=== PATIENT | male | born 1945 | race Caucasian/White ===

== ENCOUNTER 2017-07-07 06:19 | Day surgery (SDC) | payer MEDICARE ==
[2017-07-01 14:45] VITALS: BMI 23.1
[~2017-07-07 06:19] MED LIST: ALPRAZolam 0.25 MG TAB PO PRN; ALPRAZolam 0.5 MG TAB PO PRN; ASPIRIN 325 MG TAB PO STA; ATORVASTATIN 80 MG TAB PO STA; LACTATED RINGERS 1,000 ML IV SCH; MIDAZOLAM 2 MG/2 ML VIAL IV PRN; MORPHINE SULFATE 4 MG/ML SYRINGE IV PRN; NITROGLYCERIN SL TABS 0.4 MG TAB SUBLINGUAL PRN; ONDANSETRON 4 MG/2 ML VIAL IVP PRN; SODIUM CHLORIDE 0.9% 1,000 ML in EMPTY BAG 1 BAG IV ONE; SODIUM CHLORIDE 0.9% 500 ML IV ONE
[2017-07-07 07:04] VITALS: TEMP 98
[2017-07-07] MEDS ORDERED: VERAPAMIL 2.5 MG/ML 2 ML AMP ONE (07:07)
[2017-07-07] MEDS ORDERED: LIDOCAINE 2% INJ 20 MG/ML (20 ML MDV) ONE (07:07)
[2017-07-07] MEDS ORDERED: fentaNYL (PF) 50 MCG/ML 2 ML AMP ONE (07:07)
[2017-07-07] MEDS ORDERED: HEPARIN SODIUM 1,000 UN/ML (10ML VL) ONE (07:33)
[2017-07-07] MEDS ORDERED: fentaNYL (PF) 50 MCG/ML 2 ML AMP IV ONE (07:35)
[2017-07-07] MEDS ORDERED: LIDOCAINE 2% INJ 20 MG/ML SQ ONE (07:36)
[2017-07-07] MEDS: VERAPAMIL SYRINGE (5 MG/10 ML) INTRAARTER ONE ×2 (07:40→08:26)
[2017-07-07] MEDS ORDERED: HEPARIN SODIUM 1,000 UN/ML (10ML VL) IV ONE (07:55)
[2017-07-07] MEDS ORDERED: NITROGLYCERIN 1000MCG/10ML SYRINGE INTRACORON ONE (07:58)
[2017-07-07] MEDS ORDERED: IOHEXOL 350 MG/ML 125ML BOTTLE INJ ONE (08:31)
[2017-07-07] MEDS ORDERED: RX INFO: IV CONTRAST WAS GIVEN 1 EACH MISC MISCELLANE PRN (08:56)
[2017-07-07] MEDS ORDERED: NITROGLYCERIN SL TABS 0.4 MG TAB SUBLINGUAL PRN (08:57)
[2017-07-07] MEDS ORDERED: NON-FORMULARY DRUG (Ubidecarenone [Co Q-10] 100 MG) PO SCH (09:00)
[2017-07-07] MEDS ORDERED: SODIUM CHLORIDE 0.9% 1,000 ML IV SCH (09:00)
--- NOTE | 2017-07-07 09:32 | CC ---
CARDIAC CATHETERIZATION REPORT Mr. Russo is a 72-year-old male with a known history of coronary artery disease, history of hypertension, hyperlipidemia, history of dissection of the thoracic aorta, status post stenting, who presented with symptoms of progressive chest discomfort and dyspnea on exertion. In view of that, recommendation made regarding cardiac catheterization. The procedures, risks and complication were discussed with the patient who is in full understanding and agreement. PROCEDURE: Patient was brought to the [facility] in a fasting semi-sedated state after receiving fentanyl and Benadryl and achieving moderate conscious sedated state. Using Xylocaine anesthesia and Seldinger technique, a 6-[place] sheath was introduced in the right radial artery, selective right and left angiography were performed using 5- [place] 3.5 bend right and left Jhony catheter, multiple views of the coronary artery including hemiaxial views obtained. Following that, a 6-[place] 3-1/2 FL guiding catheter introduced into the system and a Doppler flow wire was advanced across the lesion. I was not able to measure FFR because of machine technical problems. Following that, catheter removed and a 5-[place] tight pigtail catheter was introduced into the left ventricle and a 30 degree VALDERRAMA view of the left ventricle was obtained. Following that, an ascending aortogram in the TAMAZIGHT view was performed. Following that, catheter and sheaths were removed. Hemostasis was obtained with deployment of a TR band. There was no immediate complication. Patient is returned to his room in stable condition. Of note, the patient received 5000 units of intravenous heparin as well as intra-arterial verapamil. FINDINGS: 1. LEFT MAIN: This is a large-sized vessel bifurcating into left circumflex, left anterior descending artery, left main coronary artery is without any significant obstructive disease. 2. LEFT ANTERIOR DESCENDING ARTERY: This was a large-sized vessel, reaching toward the apex with a wraparound apex segment, giving rise to 2 diagonal branches. At the takeoff of the first septal lithographic plate maker, there is an eccentric 70% lesion. At the takeoff of the second diagonal branch, there is a 67% plaque. The rest of the vessel has no high-grade stenosis. 3. LEFT CIRCUMFLEX: This is a nondominant vessel giving rise to 3 obtuse marginal branches. The third obtuse marginal branch is totally occluded with retrograde filling. 4. RIGHT CORONARY ARTERY: This vessel is totally occluded in the mid segment with ipsilateral collaterals and contralateral collaterals feeding the PDA. 5. LEFT VENTRICULOGRAM: Left ventriculogram was performed in 30 degree VALDERRAMA view and revealed an inferobasal hypokinesis with an ejection fraction of 45%. There was no significant mitral regurgitation. 6. AORTOGRAM: Aortogram was performed in the TAMAZIGHT view and revealed a tricuspid aortic valve with no evidence of aortic regurgitation. The stented arch and descending thoracic aorta were noted. 7. HEMODYNAMICS: There is no gradient across the aortic valve. The ventricular end- diastolic pressure was 12 mmHg. 8. CONCLUSION: 1. Chronically occluded mid right coronary artery and third obtuse marginal branch. 2. Progression of disease in the proximal left anterior descending artery with significant obstructive disease with moderate significant disease in the mid left anterior descending artery. 3. Mildly impaired left ventricular systolic function. 4. Normal appearance of the ascending aorta. There was evidence of a stented segment in the arch and descending thoracic aorta. RECOMMENDATION: I have recommend proceed with evaluation for possible coronary artery bypass grafting with bypass to the LAD, diagonal branch as well as the circumflex obtuse marginal branch 3 and the right coronary artery. Those findings and recommendations were discussed with the patient and his family who in full understand and agreement. DURATION OF THE PROCEDURE: 58 minutes. MMODL / IJN: [id number] / HERNANDEZ
--- NOTE | 2017-07-07 09:38 | LTR ---
DATE OF SERVICE: 07/07/2017 RE: Von Russo Dear Dr. Thompson; I had the pleasure to perform cardiac catheterization on Mr. Russo at [facility] on July 07, 2017 and a full copy of the procedure note will be forwarded to you. In brief, he was found to have progression of disease in the proximal left anterior descending artery. In view of that, I would recommend proceeding with evaluation for coronary artery bypass grafting. I will keep you updated on his progress and thank you again for allowing me to participate in this patient's care. Please feel free to call for any questions. Sincerely yours, Lit CARDOSOL / MUSHTAQN: [id number] /
[2017-07-07 09:50] VITALS: RESP 16
[2017-07-07 11:30] VITALS: BP 123/75; PULSE 58
[2017-07-07] MEDS ORDERED: CALCIUM CARB-VIT D 500MG-200UN 1 EACH TAB PO SCH (14:00)
[2017-07-07] MEDS ORDERED: CARVEDILOL 12.5 MG TAB PO SCH (17:30)
[2017-07-07] MEDS ORDERED: ATORVASTATIN 40 MG TAB PO SCH (21:00)
[2017-07-07] MEDS ORDERED: levETIRAcetam 500 MG TAB PO SCH (21:00)
[2017-07-08] MEDS ORDERED: ISOSORBIDE MONONITRATE ER 30 MG TAB.ER.24H PO SCH (09:00)
[2017-07-08] MEDS ORDERED: ASPIRIN 81 MG PO SCH (09:00)
[2017-07-08] MEDS ORDERED: DOXAZOSIN 2 MG TAB PO SCH (09:00)
[2017-07-08] MEDS ORDERED: ESCITALOPRAM 10 MG TAB PO SCH (09:00)
--- NOTE | 2017-07-08 09:01 | P.GSCN ---
<Patricia Bonilla - Last Filed: 07/08/17 08:38> History of Present Illness Consult date: 07/07/17 Reason for Consult: Multivessel coronary artery disease, surgical recommendations. Requesting physician: Lit Villarreal History of present illness: This 72-year-old gentleman with a history of coronary artery disease including previous left heart catheterizations with stent placement, most recently in 2013 , peripheral artery disease including descending aortic dissection repair with stent graft placement, hypertension, hyperlipidemia, pulmonary embolism, and family history of heart disease presented to Dr. Villarreal's office with complaints of exertional chest pain and progressive dyspnea which was improved with rest and sublingual nitroglycerin. He complained of increase in fatigue which was limiting his activities of daily living. He denied orthopnea, paroxysmal nocturnal dyspnea, edema, palpitations, syncope, and claudication. He had carotid Dopplers in April which demonstrated mild disease to his bilateral internal coronary arteries, a transthoracic echocardiogram in May which demonstrated a normal ejection fraction, mild mitral regurgitation, mild aortic insufficiency, and mild tricuspid regurgitation. Based on his symptoms a left heart catheterization was recommended which was completed on July 07 and demonstrated left main coronary artery without significant disease, first diagonal branch off the LAD with a 70% lesion, second diagonal branch with a 67% lesion, third obtuse marginal branch of the left circumflex which is totally chronically occluded, totally chronically occluded right coronary artery with collaterals feeding the PDA, and a left ventriculogram demonstrating an ejection fraction of 45%. Due to the nature of his heart disease Dr. Goldsmith from cardiothoracic surgery was consulted for recommendations regarding surgical revascularization. Review of Systems 14 point review systems was completed and was negative except as noted. - Constitutional Reports fatigue - Cardiovascular Reports as per HPI, Reports chest pain, Reports dyspnea on exertion - Respiratory Reports as per HPI, Reports dyspnea Past Medical History Past Medical History: Coronary Artery Disease (CAD), Eye Disorder, Hyperlipidemia, Hypertension, Myocardial Infarction ([place]), Prostate Disorder, Pulmonary Embolus ([place]), Renal Disease, Seizure Disorder Additional Past Medical History / Comment(s): multiple KS's,macular degeneration titus., osteopenia, lt kidney functioning at 75% Last Myocardial Infarction Date:: unknown History of Any Multi-Drug Resistant Organisms: None Reported Past Surgical History: Heart Catheterization With Stent, Orthopedic Surgery Additional Past Surgical History / Comment(s): aorta disection 2013 with stent graft placement, heart cath with stents x2,ocular implants titus. eyes Past Anesthesia/Blood Transfusion Reactions: No Reported Reaction Date of Last Stent Placement:: 2013 Past Psychological History: No Psychological Hx Reported Smoking Status: Former smoker Past Alcohol Use History: None Reported Past Drug Use History: None Reported - Past Family History Father Family Medical History: Cancer, Deep Vein Thrombosis (DVT) Additional Family Medical History / Comment(s): esophageal Mother Family Medical History: AFIB, Asthma, Congestive Heart Failure (CHF) Medications and Allergies Home Medications Medication Instructions Recorded Confirmed Type Aspirin EC [Ecotrin Low Dose] 81 mg PO DAILY 03/15/16 07/07/17 History Atorvastatin [Lipitor] 40 mg PO HS 03/15/16 07/07/17 History Calcium Carbonate/Vitamin D3 2 tab PO DAILY 03/15/16 07/07/17 History [Calcium 600-Vit D3 400 Caplet] Carvedilol [Coreg] 12.5 mg PO BID 03/15/16 07/07/17 History Doxazosin [Cardura] 2 mg PO DAILY 03/15/16 07/07/17 History Escitalopram [Lexapro] 10 mg PO DAILY 03/15/16 07/07/17 History Isosorbide Mononitrate ER [Imdur] 30 mg PO DAILY 03/15/16 07/07/17 History Nitroglycerin Sl Tabs [Nitrostat] 0.4 mg SUBLINGUAL Q5M PRN 03/15/16 07/01/17 History Ubidecarenone [Co Q-10] 100 mg PO DAILY 03/15/16 07/07/17 History levETIRAcetam [Keppra] 500 mg PO Q12HR 03/15/16 07/07/17 History Allergies Allergy/AdvReac Type Severity Reaction Status Date / Time Fish Containing Products AdvReac Nausea & Verified 07/01/17 14:13 [Fish] Vomiting & Diarrhea garlic AdvReac Nausea & Verified 07/01/17 14:13 Vomiting & Diarrhea tramadol HCl [From Ultram] AdvReac Confusion Verified 07/01/17 14:13 Surgical - Exam Vital Signs Temp Pulse Resp BP Pulse Ox 98.0 F 59 L 18 126/80 95 07/07/17 06:50 07/07/17 06:50 07/07/17 06:50 07/07/17 06:50 07/07/17 06:50 Results - Imaging Additional studies: Cardiac catheterization films reviewed. Assessment and Plan (1) Coronary artery disease Status: Chronic Code(s): I25.10 - ATHSCL HEART DISEASE OF [place] CORONARY ARTERY W/O ANG PCTRS SNOMED Code(s): 77378937 (2) History of coronary artery stent placement Status: Resolved Code(s): Z95.5 - PRESENCE OF CORONARY ANGIOPLASTY IMPLANT AND GRAFT SNOMED Code(s): 884678680 (3) Peripheral artery disease Status: Chronic Code(s): I73.9 - PERIPHERAL VASCULAR DISEASE, UNSPECIFIED SNOMED Code(s): 518477344 (4) Hypertension Status: Chronic Code(s): I10 - ESSENTIAL (PRIMARY) HYPERTENSION SNOMED Code( s): 04012564 (5) Hyperlipidemia Status: Chronic Code(s): E78.5 - HYPERLIPIDEMIA, UNSPECIFIED SNOMED Code(s) : 66015408 (6) History of pulmonary embolism Status: Resolved Code(s): Z86.711 - PERSONAL HISTORY OF PULMONARY EMBOLISM SNOMED Code(s): 099173681 (7) Family history of heart disease Status: Chronic Code(s): Z82.49 - FAMILY HX OF ISCHEM HEART DIS AND OTH DIS OF THE CIRC SYS SNOMED Code(s): 112496938 (8) GERD (gastroesophageal reflux disease) Status: Chronic Code(s): K21.9 - GASTRO-ESOPHAGEAL REFLUX DISEASE WITHOUT ESOPHAGITIS SNOMED Code(s): 645971686 (9) Tobacco dependence in remission Status: Resolved Code(s): F17.201 - NICOTINE DEPENDENCE, UNSPECIFIED, IN REMISSION SNOMED Code(s): 752420630 Plan: The patient was seen and examined at the bedside in the extended stay unit with Dr. Goldsmith. Chart and diagnostics were reviewed. Heart catheterization films were reviewed with Dr. Goldsmith. An extensive discussion was had with the patient and his regarding the patient's disease process and our recommendations for surgical revascularization. Risks and benefits were explained in detail and the patient is consenting to coronary artery bypass graft surgery. He is to have a CT angiogram of his chest on Tuesday, July 11 as well as remaining preoperative testing. He is to follow-up with Dr. Goldsmith at his office on July 14 at 1:45 PM to make plans for a surgical date. At this time we recommend medical maximization with aspirin, statin, beta alf in preparation for surgery. Time with Patient: Greater than 30 <Yon Goldsmith - Last Filed: 07/14/17 12:24> Surgical - Exam Vital Signs Temp Pulse Resp BP Pulse Ox 98.0 F 59 L 18 126/80 95 07/07/17 06:50 07/07/17 06:50 07/07/17 06:50 07/07/17 06:50 07/07/17 06:50 Assessment and Plan Assessment: Patient was seen and examined. Films were reviewed with Dr. Villarreal. Long discussion was held with the patient and his . Plan will be for elective bypass surgery. Patient is to follow up with me in the office. Computed tomography scan of the chest will be obtained to evaluate the patient's thoracic aorta prior to surgery. I agree with the evaluation as documented above by the nurse practitioner.
== END 2017-07-07 13:53 | disposition home or self-care (01) ==
LOC: CATHCVL 06:19
PROVIDERS: ATTEND Internal Medicine Interventional Cardiology
DX: I25.110 Atherosclerotic heart disease of native coronary artery with unstable angina pectoris (principal); I25.82 Chronic total occlusion of coronary artery; I10 Essential (primary) hypertension; E78.2 Mixed hyperlipidemia; E78.00 Pure hypercholesterolemia, unspecified; K21.9 Gastro-esophageal reflux disease without esophagitis; G40.909 Epilepsy, unspecified, not intractable, without status epilepticus; I73.9 Peripheral vascular disease, unspecified; F17.201 Nicotine dependence, unspecified, in remission; Z79.899 Other long term (current) drug therapy; Z79.82 Long term (current) use of aspirin; Z82.49 Family history of ischemic heart disease and other diseases of the circulatory system; Z88.8 Allergy status to other drugs, medicaments and biological substances; Z86.711 Personal history of pulmonary embolism; Z95.5 Presence of coronary angioplasty implant and graft
CPT/HCPCS: 93458; 93567; C1887; C1894; C1769; J2001; J3010; J1644; Q9967

== ENCOUNTER → 2017-07-11 | Outpatient (CLI) | payer MEDICARE ==
[2017-07-11 09:09] LABS: Blood Urea Nitrogen 12 mg/dL (9-20); Non-African American GFR(MDRD) >60 (>60 ml/min/1.73 sqM)
--- NOTE | 2017-07-11 12:56 | XR ---
EXAMINATION TYPE: XR chest 2V DATE OF EXAM: 07/11/2017 COMPARISON: Prior chest x-ray 03/15/2016 HISTORY: Preop TECHNIQUE: Frontal and lateral views of the chest are obtained. FINDINGS: Postop change noted to the right shoulder, aortic stent graft is again noted in the thorac ic aorta. Surgical clips present in the left upper chest. Hyperinflation may be indicative of underly ing COPD. There is no evident pneumonia, pneumothorax, or pleural effusion. Cardiac mediastinal silho uette, pulmonary vascularity and shamar are similar in appearance. Wedge compression deformity noted at the midthoracic vertebral body as on previous exam is resulting kyphosis. Surgical clips present at the gastroesophageal junction. Patient is rotated. IMPRESSION: No acute cardiopulmonary process. Additional findings above.
--- NOTE | 2017-07-11 13:44 | CT ---
EXAMINATION TYPE: CT angio chest DATE OF EXAM: 07/11/2017 COMPARISON: Chest radiograph of 03/15/2016 HISTORY: Stent graft follow-up CT DLP: 1291 mGycm. Automated Exposure Control for Dose Reduction was Utilized. CONTRAST: CTA scan of the thorax is performed without and with IV Contrast, patient injected with 100 mL of Omn ipaque 350, pulmonary embolism protocol. MIP Images are created on CT scanner and reviewed. FINDINGS: LUNGS: The lungs are grossly clear, there is no concerning parenchymal mass or nodule identified. N umerous areas of pleural-parenchymal scarring are noted versus chronic atelectasis. There is mild rig ht hemidiaphragm elevation. There is no pleural effusion or pneumothorax seen. The tracheobronchial tree is patent. MEDIASTINUM: No hyperdense intramural hematoma is seen on the noncontrast images. Endograft is presen t within the aortic arch beginning at the origin of the right brachiocephalic artery and extending to the approximately T6 vertebral level within the descending thoracic aorta. Anterior to the distal as pect of the endograft there is eccentric mural plaquing measuring 2.8 x 5.0 x 3.0 cm. Abutting the in ferior surface of the graft begins and intimal flap visualized with the endograft in the true lumen. This dissection spans approximately 4.5 cm in length involving only the descending thoracic aorta. Pr ior to the diaphragmatic hiatus the dissection flap resolves. This is contained within the descending thoracic aortic aneurysm measuring 5.6 x 4.9 cm. The visualized portions of the upper abdominal aort a are of normal caliber. There is near proximal occlusion of the origin of the left subclavian artery with endograft placed ap proximately 1.5 cm cephalad to its origin with reconstitution of flow seen distally and numerous surg ical clips in the left supraclavicular region. There are no greater than 1 cm hilar or mediastinal lymph nodes. No cardiomegaly or pericardial eff usion is seen. OTHER: Partially visualized exophytic left probable renal cyst with peripheral calcification is prese nt. Severe right renal atrophy is also present. Hypoattenuated hepatic lesions that are too small to accurately characterize are seen. Gastroesophageal hiatal hernia, small, with postsurgical changes at the gastroesophageal junction are noted. The thyroid gland is enlarged and heterogenous with subster nal extension of the left lobe. Chronic fracture deformities of right lateral mid ribs are seen. No a cute fractures are present. Compression deformity of T7 is seen in addition to multilevel degenerativ e changes of the thoracic spine. This is unchanged from the chest radiograph of 03/15/2016. Right reve rse total humeral arthroplasties partially visualized. IMPRESSION: 1. Endoluminal aortic arch and descending thoracic aortic graft with no evidence of endoleak. Short s egment descending thoracic aortic dissection measures 4.7 cm in length and terminates prior to the ao rtic diaphragmatic hiatus therefore localized to the descending thoracic aorta. 2. 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 Potential subclavian steal syndrome is poss ible with reversal flow in the left vertebral artery feeding the left subclavian artery. This could b e assessed with carotid Doppler ultrasound. 3. Probable thyroid goiter. Thyroid ultrasound could be performed if clinically indicated. 4. Small residual gastroesophageal hernia with postsurgical changes at the gastroesophageal junction. 5. Chronic compression deformity of T7 superimposed upon multilevel degenerative changes of the thora cic spine. Findings were attempted to be relayed to the voicemail of Nurse Practitioner Patricia at Dr. Goldsmith's offi ce at 11:18 on 07/11/2017 however the ordering physician was unavailable.
--- NOTE | 2017-07-13 11:39 | P.VSCSTY ---
Greater Saphenous Vein Mapping This is bilateral lower extremity greater saphenous vein mapping. Date of service 07/11/2017 Vein quality and ultrasound appearance patient has a dual system on the right.. Ant post Vein size groin right 6.1 x 6.2 mm groin left 7.8 x 8.3 mm High thigh right 4.8 x 4.4 5.5 x 4.0 high thigh left 6.3 x 5.6 Mid thigh right 4.7 x 4.4 4.1 x 3.7 mid thigh left 5.3 x 4.9 Above-knee right 5.1 x 3.7 3.7 x 3.2 above-knee left 5.1 x 5.2 Below knee right 3.9 x 2.9 3.2 x 3.3 below-knee left 4.6 x 3.9 Mid calf right 3.6 x 2.9 3.4 x 3.2 mid calf left 3.6 x 3.2 Ankle right 4.9 x 4.5 ankle left 4.4 x 3.6 Impression dual system on the right with both branches apparently usable in portions. Anterior branch somewhat larger. Usable left greater saphenous vein..
== END | disposition home or self-care (01) ==
LOC: RADCTMAIN 08:24
PROVIDERS: ATTEND Thoracic Surgery (Cardiothoracic Vascular Surgery)
DX: I71.2 Thoracic aortic aneurysm, without rupture (principal); I72.8 Aneurysm of other specified arteries; Z95.828 Presence of other vascular implants and grafts; Z98.890 Other specified postprocedural states
CPT/HCPCS: 82565; 84520; 71020; 93970; 71275; 36415; Q9967

== ENCOUNTER 2018-10-25 04:49 | Emergency (ER) | payer MEDICARE ==
[2018-10-25 05:01] VITALS: TEMP 97.8
[2018-10-25 05:11] LABS: Glucose,Whole Blood 151 mg/dL (75-99)
--- NOTE | 2018-10-25 05:29 | ED ---
Seizure HPI - General Chief Complaint: Seizure Stated Complaint: Seizures Time Seen by Provider: 10/25/18 05:22 Source: patient, EMS Mode of arrival: EMS Limitations: altered mental status - History of Present Illness Initial Comments: This patient is a 73-year-old man brought by ambulance to be evaluated for suspected seizure. Patient did have previous seizure and 2016 and had been taking anticonvulsants. The patient does not recall having seizure. He states that he must of been in bed. Reportedly the family member noted him having seizure and called EMS. When I interview the patient he does not feel like he had any injury as result area he denies pain. He states that his breathing seems normal. MD Complaint: possible seizure -: minutes(s) Witnessed: yes - by bystander Trauma: No Place: home Possible Precipitating Event: none Associated Symptoms: denies other symptoms Treatments Prior to Arrival: none - Related Data Home Medications Medication Instructions Recorded Confirmed Doxazosin [Cardura] 2 mg PO DAILY 03/15/16 10/25/18 Escitalopram [Lexapro] 10 mg PO DAILY 03/15/16 10/25/18 Metoprolol Tartrate [Lopressor] 50 mg PO BID 04/06/18 10/25/18 Atorvastatin [Lipitor] 40 mg PO HS 10/25/18 10/25/18 Escitalopram [Lexapro] 20 mg PO DAILY 10/25/18 10/25/18 Allergies Allergy/AdvReac Type Severity Reaction Status Date / Time tramadol HCl [From Ultram] Allergy seizure Verified 10/25/18 07:08 Fish Containing Products AdvReac Nausea & Verified 10/25/18 07:08 [Fish] Vomiting & Diarrhea garlic AdvReac Nausea & Verified 10/25/18 07:08 Vomiting Review of Systems ROS Statement: Those systems with pertinent positive or pertinent negative responses have been documented in the HPI. ROS Other: All systems not noted in ROS Statement are negative. Constitutional: Denies: fever Eyes: Denies: vision change Respiratory: Denies: cough, dyspnea Cardiovascular: Denies: chest pain Gastrointestinal: Denies: abdominal pain, vomiting, diarrhea, melena, hematochezia Musculoskeletal: Denies: back pain Skin: Denies: rash Neurological: Denies: headache, weakness, numbness Past Medical History Past Medical History: Coronary Artery Disease (CAD), Eye Disorder, GERD/Reflux, Hearing Disorder / Deafness, Hyperlipidemia, Hypertension, Myocardial Infarction ([place]), Osteoarthritis (OA), Prostate Disorder, Pulmonary Embolus (PE) , Renal Disease, Seizure Disorder Additional Past Medical History / Comment(s): Multiple FL's. Macular Degeneration titus., Osteopenia. Rt kidney functioning at 75%, LT KIDNEY NON- FUNCTIONING. HX SEIZURE X2, LAST 12/2015, WITH INJURIES TO RT SHOULDER, HIP - BOTH REPAIRED., Last Myocardial Infarction Date:: unknown History of Any Multi-Drug Resistant Organisms: None Reported Past Surgical History: Bladder Surgery, Coronary Bypass/CABG, Heart Catheterization With Stent, Joint Replacement, Orthopedic Surgery Additional Past Surgical History / Comment(s): aorta dissection 2013, heart cath with stents x2, ocular implants titus. eyes. 09-13-14 left carotid. stents x2 aorta. ORIF Rt shoulder, Rt hip replaced. Bilateral inguinal hernia repairs, CABG on 08/2018 - X5 vessel., Past Anesthesia/Blood Transfusion Reactions: No Reported Reaction Additional Past Anesthesia/Blood Transfusion Reaction / Comment(s): Hx autologeous blood transfusion without problems Date of Last Stent Placement:: 2013 Past Psychological History: Depression Smoking Status: Former smoker Past Alcohol Use History: None Reported Past Drug Use History: Marijuana - Past Family History Father Family Medical History: Cancer, Deep Vein Thrombosis (DVT) Additional Family Medical History / Comment(s): esophageal Mother Family Medical History: AFIB, Asthma, Congestive Heart Failure (CHF) General Exam Limitations: altered mental status General appearance: alert, in no apparent distress Head exam: Present: atraumatic, normocephalic Eye exam: Present: normal appearance. Absent: scleral icterus, conjunctival injection ENT exam: Present: normal oropharynx Neck exam: Present: normal inspection, full ROM. Absent: tenderness, meningismus Respiratory exam: Present: normal lung sounds bilaterally. Absent: respiratory distress, wheezes, rales, rhonchi, stridor Cardiovascular Exam: Present: regular rate, normal rhythm, normal heart sounds. Absent: systolic murmur, diastolic murmur, rubs, gallop GI/Abdominal exam: Present: soft. Absent: distended, tenderness, guarding, rebound, rigid, mass Extremities exam: Present: normal inspection, normal capillary refill. Absent: pedal edema, calf tenderness Back exam: Present: normal inspection. Absent: vertebral tenderness Neurological exam: Present: alert, oriented X3, CN II-XII intact. Absent: motor sensory deficit Skin exam: Present: warm, dry, intact, normal color. Absent: rash Course Vital Signs 10/25/18 10/25/18 10/25/18 04:54 06:34 06:59 Temperature 97.8 F Pulse Rate 77 109 H 102 H Respiratory 18 24 20 Rate Blood Pressure 147/93 155/115 146/93 O2 Sat by Pulse 95 95 100 Oximetry 10/25/18 10/25/18 08:00 08:42 Temperature Pulse Rate 89 85 Respiratory 18 18 Rate Blood Pressure 120/64 120/67 O2 Sat by Pulse 99 96 Oximetry - Reevaluation(s) Reevaluation #1: 10/25/18 06:57 I was notified by nursing staff that the patient was having a generalized tonic- clonic seizure. I did order Ativan and the seizure did stop. Following the seizure, the patient was found to be in a narrow complex tachycardia consistent with SVT, at approximately 175 bpm. He was given dose of adenosine 12 mg which resulted in conversion to sinus tachycardia with a rate approximately 112. I discussed the patient's case with his who requests that he be transferred to [facility] for further neurologic care. 10/25/18 08:29 Case is discussed with Dr. Freed, at [facility] who will accept transfer the patient for further care. Medical Decision Making - Lab Data Result diagrams: 10/25/18 05:01 10/25/18 05:01 Lab Results 10/25/18 10/25/18 10/25/18 Range/Units 05:01 05:01 05:10 WBC 7.2 (3.8-10.6) k/uL RBC 5.07 (4.30-5.90) m/uL Hgb 16.6 (13.0-17.5) gm/dL Hct 52.0 (39.0-53.0) % MCV 102.6 H (80.0-100.0) fL MCH 32.8 (25.0-35.0) pg MCHC 32.0 (31.0-37.0) g/dL RDW 14.0 (11.5-15.5) % Plt Count 124 L (150-450) k/uL Neutrophils % 77 % Lymphocytes % 10 % Monocytes % 6 % Eosinophils % 4 % Basophils % 1 % Neutrophils # 5.6 (1.3-7.7) k/uL Lymphocytes # 0.7 L (1.0-4.8) k/uL Monocytes # 0.5 (0-1.0) k/uL Eosinophils # 0.3 (0-0.7) k/uL Basophils # 0.1 (0-0.2) k/uL Macrocytosis Slight Sodium 140 (137-145) mmol/L Potassium 4.4 (3.5-5.1) mmol/L Chloride 108 H (98-107) mmol/L Carbon Dioxide 19 L (22-30) mmol/L Anion Gap 13 mmol/L BUN 17 (9-20) mg/dL Creatinine 1.16 (0.66-1.25) mg/dL Est GFR (CKD-EPI)AfAm 72 (>60 ml/min/1.73 sqM) Est GFR (CKD-EPI)NonAf 62 (>60 ml/min/1.73 sqM) Glucose 154 H (74-99) mg/dL POC Glucose (mg/dL) 151 H (75-99) mg/dL POC Glu Humidifier Operator ID Sonali Sousa Calcium 8.8 (8.4-10.2) mg/dL Total Bilirubin 0.8 (0.2-1.3) mg/dL AST 29 (17-59) U/L ALT 22 (21-72) U/L Alkaline Phosphatase 90 (38-126) U/L Total Protein 6.7 (6.3-8.2) g/dL Albumin 3.7 (3.5-5.0) g/dL Critical Care Time Critical Care Time: Yes (45 minutes) Disposition Clinical Impression: Generalized seizure, Supraventricular tachycardia by ECG Disposition: OTHER INSTITUTION NOT DEFINED Condition: Serious Is patient prescribed a controlled substance at d/c from ED?: No Referrals: Kalia Thompson MD [Primary Care Provider] - 1-2 days - Out of Hospital Transfer - Req. Specs Out of Hospital Transfer - Requested Specifics: Other Emergency Center
[2018-10-25 05:38] LABS: Basophils # (A) 0.1 k/uL (0-0.2); Basophils % (A) 1 %; Eosinophils # (A) 0.3 k/uL (0-0.7); Eosinophils % (A) 4 %; HGB 16.6 gm/dL (13.0-17.5); Lymphocytes # (A) 0.7 k/uL (1.0-4.8); Lymphocytes % (A) 10 %; MCH 32.8 pg (25.0-35.0); MCV 102.6 fL (80.0-100.0); Macrocytosis Slight; Mean Platelet Volume 7.7; Monocytes # (A) 0.5 k/uL (0-1.0); Monocytes % (A) 6 %; Neutrophils # (A) 5.6 k/uL (1.3-7.7); Neutrophils % (A) 77 %; Platelet Count 124 k/uL (150-450); RBC 5.07 m/uL (4.30-5.90); WBC 7.2 k/uL (3.8-10.6)
[2018-10-25 05:50] LABS: Albumin 3.7 g/dL (3.5-5.0); Calcium 8.8 mg/dL (8.4-10.2); Total Bilirubin 0.8 mg/dL (0.2-1.3); Total Protein 6.7 g/dL (6.3-8.2)
--- NOTE | 2018-10-25 05:50 | CT ---
EXAM: CT Head Without Intravenous Contrast CLINICAL HISTORY: ITS.REASON CT Reason: seizure activity TECHNIQUE: Axial computed tomography images of the head/brain without intravenous contrast. CTDI is 49.1 mGy and DLP is 1209.4 mGy-cm. This CT exam was performed using one or more of the following dose reduction techniques: automated exposure control, adjustment of the mA and/or kV according to patient size, and/or use of iterative reconstruction technique. COMPARISON: No relevant prior studies available. FINDINGS: Brain: No evidence of acute intracranial hemorrhage. Moderate patchy foci of low attenuation throughout the supratentorial white matter. No mass effect or herniation. Ventricles: Unremarkable. No ventriculomegaly. Bones/joints: No acute fracture. Soft tissues: Unremarkable. Vasculature: Calcification of the distal internal carotid arteries and vertebrobasilar system. Sinuses: Unremarkable as visualized. Mastoid air cells: Unremarkable as visualized. Other findings: Mild mucosal thickening in the left maxillary antrum. Mild global volume loss. IMPRESSION: 1. No evidence of acute intracranial hemorrhage. 2. Moderate patchy foci of low attenuation throughout the supratentorial white matter. This is most compatible with moderate small vessel ischemic disease.
[2018-10-25 06:08] LABS: Potassium 4.4 mmol/L (3.5-5.1)
[2018-10-25] MEDS ORDERED: LORazepam 2 MG/ML INJ IV STA (06:55)
[2018-10-25] MEDS ORDERED: ADENOSINE 3 MG/ML 2 ML VIAL IVP STA (06:55)
[2018-10-25 08:11] VITALS: RESP 18
[2018-10-25 08:43] VITALS: BP 120/67; PULSE 85
== END 2018-10-25 08:35 | disposition short-term general hospital (02) ==
LOC: EC 04:49
DX: G40.409 Other generalized epilepsy and epileptic syndromes, not intractable, without status epilepticus (principal); I47.1 Supraventricular tachycardia; R41.82 Altered mental status, unspecified; E78.5 Hyperlipidemia, unspecified; I10 Essential (primary) hypertension; I25.10 Atherosclerotic heart disease of native coronary artery without angina pectoris; M19.90 Unspecified osteoarthritis, unspecified site; I25.2 Old myocardial infarction; N42.9 Disorder of prostate, unspecified; F32.9 Major depressive disorder, single episode, unspecified; Z87.891 Personal history of nicotine dependence; Z88.5 Allergy status to narcotic agent; Z91.013 Allergy to seafood; Z91.018 Allergy to other foods; Z79.899 Other long term (current) drug therapy; Z95.1 Presence of aortocoronary bypass graft; Z95.5 Presence of coronary angioplasty implant and graft; Z96.641 Presence of right artificial hip joint; Z96.611 Presence of right artificial shoulder joint; Z96.89 Presence of other specified functional implants; Z87.448 Personal history of other diseases of urinary system; Z82.49 Family history of ischemic heart disease and other diseases of the circulatory system
CPT/HCPCS: 36415; 70450; 80053; 85025; 93005; 96374; 96375; 99291

== ENCOUNTER → 2019-03-16 | Outpatient (CLI) | payer MEDICARE ==
--- NOTE | 2019-03-17 21:05 | CT ---
EXAMINATION TYPE: CT abdomen pelvis wo/w con DATE OF EXAM: 03/16/2019 COMPARISON: CTA 07/11/2017 INDICATION: Retention of urine DLP: 1813 mGycm, Automated exposure control for dose reduction was used. CONTRAST: 100ml mL of Isovue 300. Study performed with Oral Contrast TECHNIQUE: Axial images were obtained from above the diaphragm to the pubic rami in the axial plane a t 5 mm thick sections. Reconstructed images are reviewed on the computer in the coronal plane. FINDINGS: Limited CT sections are obtained the lung bases. The lung bases are clear. There is some aneurysmal dilatation of the descending thoracic aorta with a transverse dimension of 5.1 cm. On delayed images there is a aortic dissection which terminates above the diaphragm to the distal thoracic aorta withi n the [id number]. There is a area of increased density within the posterior lateral right lower lo be measuring 1.5 x 1.1 cm. Some scarring may be at the lingular base thickness of 1.0. Centimeters. CT ABDOMEN: Liver: A 1.3 cm cyst measuring 13 Hounsfield units is in the anterior left lobe liver. Spleen: Normal Pancreas: Normal Adrenal glands: The adrenal glands are normal. Gallbladder: Normal Kidneys: Right kidney is atrophic. There is a lobular hypodensity on the inferior lateral left kidney with peripheral calcification. This is not a simple cyst. Additional workup of this finding is recom mended. Neoplasm cannot be excluded.. No hydronephrosis is present. No cysts are present. Aorta: Vascular calcification is within the aorta. There is fusiform prominence of the distal abdomi nal aorta with an AP diameter of 2.8 cm. Inferior vena cava: Normal. CT PELVIS: Lower pelvis is limited due to bilateral hip prostheses. Loops of bowel within the abdomen and pelvis are normal. There are loops of bowel which are incom pletely distended or lack oral contrast limiting their evaluation. Appendix: Not visualized Urinary bladder: Essentially nondiagnostic due to beam hardening artifact. This appears to have a cat heter present during the exam. Genitourinary structures: Prostate is not identified. Osseous structures: No suspicious lytic or sclerotic lesions. IMPRESSIONS: 1. Complex appearing cyst with peripheral wall calcification. Additional workup is recommended. 2. Descending thoracic aortic aneurysm with dissection terminating above the diaphragm Present 2016.
== END | disposition home or self-care (01) ==
LOC: RADCTMAIN 15:44
PROVIDERS: ATTEND Urology
DX: J98.4 Other disorders of lung (principal); M61.9 Calcification and ossification of muscle, unspecified; R33.8 Other retention of urine; I71.2 Thoracic aortic aneurysm, without rupture
CPT/HCPCS: 82565; 84520; 74178; 36415; Q9967

== ENCOUNTER 2019-04-24 10:54 | Emergency (ER) | payer MEDICARE ==
[2019-04-24 11:01] VITALS: BP 159/90; PULSE 55; RESP 18; TEMP 97.9
--- NOTE | 2019-04-24 12:29 | ED ---
General Adult HPI - General Chief complaint: Urogenital Stated complaint: Male , catheter issue Time Seen by Provider: 04/24/19 11:01 Source: patient, RN notes reviewed Mode of arrival: wheelchair Limitations: no limitations - History of Present Illness Initial comments: 73-year-old male with a past medical history of kidney disease, suprapubic catheter inserted 2 weeks ago presents to the emergency department for a chief complaint of catheter malfunction. Patient had a suprapubic catheter placed 2 weeks ago. States he had a urethral Mayberry for quite some time secondary to a neurogenic bladder but tried to transition to a suprapubic Mayberry. States that today he was in the shower and it fell out. Denies any abdominal pain. States this was done by Dr. Allison in [place]. S[place] he did try to call them but was unable to get through.Patient has no other complaints at this time including shortness of breath, chest pain, abdominal pain, nausea or vomiting, headache, or visual changes. - Related Data Home Medications Medication Instructions Recorded Confirmed Escitalopram [Lexapro] 10 mg PO DAILY 03/15/16 04/24/19 Atorvastatin [Lipitor] 40 mg PO HS 10/25/18 04/24/19 L.acidoph,Paracasei, B.lactis 1 cap PO DAILY 04/24/19 04/24/19 [Probiotic] Metoprolol Tartrate [Lopressor] 25 mg PO W/SUPPER 04/24/19 04/24/19 Metoprolol Tartrate [Lopressor] 50 mg PO W/BRKFST 04/24/19 04/24/19 Nitroglycerin Sl Tabs [Nitrostat] 0.4 mg SUBLINGUAL Q5M PRN 04/24/19 04/24/19 Ubidecarenone [Co Q-10] 300 mg PO DAILY 04/24/19 04/24/19 levETIRAcetam 500 mg PO BID 04/24/19 04/24/19 Allergies Allergy/AdvReac Type Severity Reaction Status Date / Time Fish Containing Products AdvReac Nausea & Verified 04/24/19 11:33 [Fish] Vomiting & Diarrhea garlic AdvReac Nausea & Verified 04/24/19 11:33 Vomiting tramadol HCl [From Ultram] AdvReac seizure Verified 04/24/19 11:33 Review of Systems ROS Statement: Those systems with pertinent positive or pertinent negative responses have been documented in the HPI. ROS Other: All systems not noted in ROS Statement are negative. Past Medical History Past Medical History: Coronary Artery Disease (CAD), Eye Disorder, GERD/Reflux, Hearing Disorder / Deafness, Hyperlipidemia, Hypertension, Myocardial Infarction ([place]), Osteoarthritis (OA), Prostate Disorder, Pulmonary Embolus (PE), Renal Disease, Seizure Disorder Additional Past Medical History / Comment(s): Macular Degeneration titus., Osteopenia. Rt kidney functioning at 75%, LT KIDNEY NON-FUNCTIONING. Last Myocardial Infarction Date:: unknown History of Any Multi-Drug Resistant Organisms: None Reported Past Surgical History: Bladder Surgery, Coronary Bypass/CABG, Heart Catheterization With Stent, Joint Replacement, Orthopedic Surgery Additional Past Surgical History / Comment(s): aorta dissection 2013, ocular implants titus. eyes. 09-13-14 left carotid. stents x2 aorta. ORIF Rt shoulder, Rt hip replaced. Bilateral inguinal hernia repairs, CABG on 08/2018 - X5 vessel, supercath insertion Past Anesthesia/Blood Transfusion Reactions: No Reported Reaction Additional Past Anesthesia/Blood Transfusion Reaction / Comment(s): Hx autologeous blood transfusion without problems Date of Last Stent Placement:: 2013 Past Psychological History: Depression Smoking Status: Former smoker Past Alcohol Use History: None Reported Past Drug Use History: Marijuana - Past Family History Father Family Medical History: Cancer, Deep Vein Thrombosis (DVT) Additional Family Medical History / Comment(s): esophageal Mother Family Medical History: AFIB, Asthma, Congestive Heart Failure (CHF) General Exam Limitations: no limitations General appearance: alert, in no apparent distress Head exam: Present: atraumatic, normocephalic, normal inspection Eye exam: Present: normal appearance, PERRL, EOMI. Absent: scleral icterus, conjunctival injection, periorbital swelling ENT exam: Present: normal exam, mucous membranes moist Neck exam: Present: normal inspection, full ROM. Absent: tenderness, meningismus, lymphadenopathy Respiratory exam: Present: normal lung sounds bilaterally. Absent: respiratory distress, wheezes, rales, rhonchi, stridor Cardiovascular Exam: Present: regular rate, normal rhythm, normal heart sounds. Absent: systolic murmur, diastolic murmur, rubs, gallop, clicks GI/Abdominal exam: Present: soft, normal bowel sounds, other (Suprapubic catheter is no longer in place.). Absent: distended, tenderness, guarding, rebound, rigid Neurological exam: Present: alert Psychiatric exam: Present: normal affect, normal mood Course Vital Signs 04/24/19 10:56 Temperature 97.9 F Pulse Rate 55 L Respiratory 18 Rate Blood Pressure 159/90 O2 Sat by Pulse 95 Oximetry Medical Decision Making - Medical Decision Making 73-year-old male presents after suprapubic Mayberry catheter fell out. This has been in place for 2 weeks. Denies any pain in and states it came out in the shower. States he tried to reinsert it but felt resistance. States he tried to call his urologist but cannot get through on the phone. I spoke with his urologist Dr. Allison about this case. He states trying to reinsert the catheter and if unable to do so to put in a urethral catheter. Myself and Dr. Worthington used sterile technique and were able to reinsert the suprapubic catheter without complication or pain. 300 mL of urine was obtained. Patient was monitored, continued to deny any pain and urine continued to drain. I did speak with Dr. rolly Louise's medical numerical control operator. I will fax over documentation from this visit to their office. She states that he has an upcoming appointment and she will notify Dr allison. Patient is in agreement with this plan. Discussed return precautions including no urine output, abdominal pain, fevers, or any other concerning symptoms. Disposition Clinical Impression: Malfunction of indwelling urinary catheter Disposition: HOME SELF-CARE Condition: Good Instructions (If sedation given, give patient instructions): How to Care for Your Suprapubic Catheter (DC) Additional Instructions: Please follow-up with your urologist Dr. allison as soon as possible. Please return to the emergency department if you have any worsening symptoms such as no urine output, abdominal pain, fevers. Is patient prescribed a controlled substance at d/c from ED?: No Referrals: Kalia Thompson MD [Primary Care Provider] - 1-2 days Time of Disposition: 12:28
== END 2019-04-24 12:35 | disposition home or self-care (01) ==
LOC: EC 10:54
DX: T83.091A Other mechanical complication of indwelling urethral catheter, initial encounter (principal); I25.10 Atherosclerotic heart disease of native coronary artery without angina pectoris; E78.5 Hyperlipidemia, unspecified; I10 Essential (primary) hypertension; I25.2 Old myocardial infarction; G40.909 Epilepsy, unspecified, not intractable, without status epilepticus; H91.90 Unspecified hearing loss, unspecified ear; F32.9 Major depressive disorder, single episode, unspecified; Z79.899 Other long term (current) drug therapy; Z91.013 Allergy to seafood; Z91.018 Allergy to other foods; Z88.6 Allergy status to analgesic agent; Z87.891 Personal history of nicotine dependence; Z87.438 Personal history of other diseases of male genital organs; H35.30 Unspecified macular degeneration; Z95.5 Presence of coronary angioplasty implant and graft; Z95.1 Presence of aortocoronary bypass graft; Z96.611 Presence of right artificial shoulder joint; Z96.641 Presence of right artificial hip joint; Y84.8 Other medical procedures as the cause of abnormal reaction of the patient, or of later complication, without mention of misadventure at the time of the procedure
CPT/HCPCS: 99283

== ENCOUNTER 2019-06-05 22:09 | Emergency (ER) | payer MEDICARE ==
[2019-06-05 22:25] VITALS: BP 153/98; PULSE 75; RESP 18; TEMP 98.1
[2019-06-05] MEDS ORDERED: LIDOCAINE URO-JET JELLY 2% 5 ML KIT URETHRAL STA (22:43)
--- NOTE | 2019-06-05 23:25 | ED ---
Male Urogenital HPI - General Chief complaint: Urogenital Stated complaint: Needs catheter Time Seen by Provider: 06/05/19 22:38 Source: patient Mode of arrival: ambulatory Limitations: no limitations - History of Present Illness Initial comments: This 73-year-old white male presents stating that his suprapubic cath accidentally came out. He states that he has had it in place for quite some time. He last had it changed in our emergency department approximately one month ago. He states that it came out approximately 1 hour prior to arrival. He does follow up with a urologist in [place] and will be following up with them next week. He denies any abdominal pain or other complaints or modifying factors. - Related Data Home Medications Medication Instructions Recorded Confirmed Escitalopram [Lexapro] 10 mg PO DAILY 03/15/16 06/05/19 Atorvastatin [Lipitor] 40 mg PO HS 10/25/18 06/05/19 L.acidoph,Paracasei, B.lactis 1 cap PO DAILY 04/24/19 06/05/19 [Probiotic] Metoprolol Tartrate [Lopressor] 25 mg PO DAILY@2100 04/24/19 06/05/19 Metoprolol Tartrate [Lopressor] 50 mg PO DAILY@0900 04/24/19 06/05/19 Nitroglycerin Sl Tabs [Nitrostat] 0.4 mg SUBLINGUAL Q5M PRN 04/24/19 06/05/19 levETIRAcetam 500 mg PO BID 04/24/19 06/05/19 Aspirin EC [Ecotrin Low Dose] 81 mg PO HS 06/05/19 06/05/19 Doxazosin [Cardura] 2 mg PO DAILY 06/05/19 06/05/19 Hydrocodone/Acetaminophen [[place] 1 tab PO Q8H PRN 06/05/19 06/05/19 5-325] Ubidecarenone [Co Q-10] 100 mg PO DAILY 06/05/19 06/05/19 Allergies Allergy/AdvReac Type Severity Reaction Status Date / Time Fish Containing Products AdvReac Nausea & Verified 06/05/19 22:34 [Fish] Vomiting & Diarrhea garlic AdvReac Nausea & Verified 06/05/19 22:34 Vomiting tramadol HCl [From Ultram] AdvReac seizure Verified 06/05/19 22:34 Review of Systems ROS Statement: Those systems with pertinent positive or pertinent negative responses have been documented in the HPI. ROS Other: All systems not noted in ROS Statement are negative. Past Medical History Past Medical History: Coronary Artery Disease (CAD), Eye Disorder, GERD/Reflux, Hearing Disorder / Deafness, Hyperlipidemia, Hypertension, Myocardial Infarction ([place]), Osteoarthritis (OA), Prostate Disorder, Pulmonary Embolus ([place]), Renal Disease, Seizure Disorder Additional Past Medical History / Comment(s): Macular Degeneration titus., Osteopenia. Rt kidney functioning at 75%, LT KIDNEY NON-FUNCTIONING. Last Myocardial Infarction Date:: unknown History of Any Multi-Drug Resistant Organisms: None Reported Past Surgical History: Bladder Surgery, Coronary Bypass/CABG, Heart Catheterization With Stent, Joint Replacement, Orthopedic Surgery Additional Past Surgical History / Comment(s): aorta dissection 2013, ocular implants titus. eyes. 09-13-14 left carotid. stents x2 aorta. ORIF Rt shoulder, Rt hip replaced. Bilateral inguinal hernia repairs, CABG on 08/2018 - X5 vessel, supercath insertion Past Anesthesia/Blood Transfusion Reactions: No Reported Reaction Additional Past Anesthesia/Blood Transfusion Reaction / Comment(s): Hx autologeous blood transfusion without problems Date of Last Stent Placement:: 2013 Past Psychological History: Depression Smoking Status: Former smoker Past Alcohol Use History: None Reported Past Drug Use History: Marijuana - Past Family History Father Family Medical History: Cancer, Deep Vein Thrombosis (DVT) Additional Family Medical History / Comment(s): esophageal Mother Family Medical History: AFIB, Asthma, Congestive Heart Failure (CHF) General Exam Limitations: no limitations General appearance: alert, in no apparent distress GI/Abdominal exam: Present: soft, other (There is a meatus for a suprapubic cath noted in the lower abdomen at midline.). Absent: distended, tenderness Psychiatric exam: Present: normal affect, normal mood Skin exam: Present: intact. Absent: rash Course Vital Signs 06/05/19 22:24 Temperature 98.1 F Pulse Rate 75 Respiratory 18 Rate Blood Pressure 153/98 O2 Sat by Pulse 97 Oximetry Medical Decision Making - Medical Decision Making The patient was seen and examined. The previous catheter was a 16-Chilean and he has this present with him. The suprapubic area was prepped and draped in the usual sterile fashion. An attempt was made to pass a 16-Chilean catheter but thi s was not passable. It is felt as though he likely does have some adhesions buildup. A urethral dilator set was utilized and the adhesions were broken up. The regular Mayberry catheter still would not pass and therefore a 16-Chilean coud catheter was passed without any difficulty. No complications were encountered. A Urojet was utilized as well. The patient was subsequently discharge and states that he does not need any discharge instructions. The procedure is a suprapubic catheter replacement. Disposition Clinical Impression: Suprapubic catheter dysfunction Disposition: HOME SELF-CARE Condition: Good Is patient prescribed a controlled substance at d/c from ED?: No Referrals: Kalia Thompson MD [Primary Care Provider] - 1-2 days Time of Disposition: 23:25
== END 2019-06-05 23:44 | disposition home or self-care (01) ==
LOC: EC 22:09
DX: T83.198A Other mechanical complication of other urinary devices and implants, initial encounter (principal); I25.10 Atherosclerotic heart disease of native coronary artery without angina pectoris; H91.90 Unspecified hearing loss, unspecified ear; E78.5 Hyperlipidemia, unspecified; I10 Essential (primary) hypertension; I25.2 Old myocardial infarction; M19.90 Unspecified osteoarthritis, unspecified site; N42.9 Disorder of prostate, unspecified; G40.909 Epilepsy, unspecified, not intractable, without status epilepticus; F32.9 Major depressive disorder, single episode, unspecified; Z87.891 Personal history of nicotine dependence; Z88.5 Allergy status to narcotic agent; Z91.013 Allergy to seafood; Z91.018 Allergy to other foods; Z79.82 Long term (current) use of aspirin; Z79.899 Other long term (current) drug therapy; Z95.1 Presence of aortocoronary bypass graft; Z96.641 Presence of right artificial hip joint
CPT/HCPCS: 51710; 99283

== ENCOUNTER 2022-09-07 13:59 | Emergency (ER) | payer MEDICARE ==
--- NOTE | 2022-09-07 14:07 | ED ---
General Adult HPI <Rogelio Olmos - Last Filed: 09/07/22 14:25> <Emanuel Galindo - Last Filed: 09/07/22 15:13> - General Stated complaint: Fall, Head injury Time Seen by Provider: 09/07/22 14:25 - History of Present Illness Initial comments: Dictation was produced using [employer] dictation software. please excuse any grammatical, word or spelling errors. Medical screening exam: 77-year-old male presents to emergency Department after head injury. Patient at around noon was lifting up one of his cats to go over a gate when he slipped and fell. Struck his head and landed on his left side. Complains of left-sided extremity pain. Denies any loss of consciousness. Denies any headache or neck pain at this time. Patient does not take any anticoagulation medications. Focused physical exam shows that patient has a large hematoma over his left forehead. (Rogelio Olmos) - Related Data Home Medications Medication Instructions Recorded Confirmed Escitalopram [Lexapro] 10 mg PO DAILY 03/15/16 06/05/19 Atorvastatin [Lipitor] 40 mg PO HS 10/25/18 06/05/19 L.acidoph,Paracasei, B.lactis 1 cap PO DAILY 04/24/19 06/05/19 [Probiotic] Metoprolol Tartrate [Lopressor] 25 mg PO DAILY@2100 04/24/19 06/05/19 Metoprolol Tartrate [Lopressor] 50 mg PO DAILY@0900 04/24/19 06/05/19 Nitroglycerin Sl Tabs [Nitrostat] 0.4 mg SUBLINGUAL Q5M PRN 04/24/19 06/05/19 levETIRAcetam 500 mg PO BID 04/24/19 06/05/19 Aspirin EC [Ecotrin Low Dose] 81 mg PO HS 06/05/19 06/05/19 Doxazosin [Cardura] 2 mg PO DAILY 06/05/19 06/05/19 Hydrocodone/Acetaminophen [[place] 1 tab PO Q8H PRN 06/05/19 06/05/19 5-325] Ubidecarenone [Co Q-10] 100 mg PO DAILY 06/05/19 06/05/19 Allergies Allergy/AdvReac Type Severity Reaction Status Date / Time Fish Containing Products AdvReac Nausea & Verified 09/07/22 14:20 [Fish] Vomiting & Diarrhea garlic AdvReac Nausea & Verified 09/07/22 14:20 Vomiting tramadol HCl [From Ultram] AdvReac seizure Verified 09/07/22 14:20 Review of Systems ROS Other: All systems not noted in ROS Statement are negative. <Rogelio Olmos - Last Filed: 09/07/22 14:25> ROS Other: All systems not noted in ROS Statement are negative. <Emanuel Galindo - Last Filed: 09/07/22 15:13> ROS Statement: Those systems with pertinent positive or pertinent negative responses have been documented in the HPI. Past Medical History Past Medical History: Coronary Artery Disease (CAD), Eye Disorder, GERD/Reflux, Hearing Disorder / Deafness, Hyperlipidemia, Hypertension, Myocardial Infarction ([place]), Osteoarthritis (OA), Prostate Disorder, Pulmonary Embolus ([place]), Renal Disease, Seizure Disorder Additional Past Medical History / Comment(s): Macular Degeneration titus., Osteopenia. Rt kidney functioning at 75%, LT KIDNEY NON-FUNCTIONING. Last Myocardial Infarction Date:: unknown History of Any Multi-Drug Resistant Organisms: None Reported Past Surgical History: Bladder Surgery, Coronary Bypass/CABG, Heart Catheterization With Stent, Joint Replacement, Orthopedic Surgery Additional Past Surgical History / Comment(s): aorta dissection 2013, ocular implants titus. eyes. 1-15 left carotid. stents x2 aorta. ORIF Rt shoulder, Rt hip replaced. Bilateral inguinal hernia repairs, CABG on 08/2018 - X5 vessel, supercath insertion Past Anesthesia/Blood Transfusion Reactions: No Reported Reaction Additional Past Anesthesia/Blood Transfusion Reaction / Comment(s): Hx autologeous blood transfusion without problems Date of Last Stent Placement:: 2013 Past Psychological History: Depression Past Alcohol Use History: None Reported Past Drug Use History: Marijuana - Past Family History Father Family Medical History: Cancer, Deep Vein Thrombosis (DVT) Additional Family Medical History / Comment(s): esophageal Mother Family Medical History: AFIB, Asthma, Congestive Heart Failure (CHF) <Rogelio Olmos - Last Filed: 09/07/22 14:25> General Exam Limitations: no limitations General appearance: alert, in no apparent distress Head exam: Present: atraumatic, normocephalic. Absent: normal inspection (Large left-sided hematoma) Eye exam: Present: normal appearance, PERRL, EOMI. Absent: scleral icterus, conjunctival injection, periorbital swelling ENT exam: Present: normal exam, normal oropharynx, mucous membranes moist Neck exam: Present: normal inspection, full ROM. Absent: tenderness, meningismus, lymphadenopathy Respiratory exam: Present: normal lung sounds bilaterally. Absent: respiratory distress, wheezes, rales, rhonchi, stridor Cardiovascular Exam: Present: regular rate, normal rhythm, normal heart sounds. Absent: systolic murmur, diastolic murmur, rubs, gallop, clicks Extremities exam: Present: normal inspection, full ROM, normal capillary refill. Absent: tenderness, pedal edema, joint swelling, calf tenderness Back exam: Present: full ROM. Absent: tenderness Neurological exam: Present: alert, oriented X3, CN II-XII intact, reflexes normal. Absent: motor sensory deficit Skin exam: Present: warm, dry, intact, normal color. Absent: rash <Emanuel Galindo - Last Filed: 09/07/22 15:13> Course Vital Signs 09/07/22 14:16 Temperature 98 F Pulse Rate 71 Respiratory 18 Rate Blood Pressure 152/92 O2 Sat by Pulse 95 Oximetry Medical Decision Making <Emanuel Galindo - Last Filed: 09/07/22 15:13> - Medical Decision Making Was pt. sent in by a medical professional or institution? @ -no Did you speak to anyone other than the patient for history? @ -no Did you review nursing and triage notes? @ -agree and reviewedn Were old charts reviewed? @ no Differential Diagnosis? @ -Intracranial hemorrhage, scalp hematoma, cervical fracture, facial fracture, skull fracture this list is not inclusive EKG interpreted by me (3pts min.)? @ -no X-rays interpreted by me (1pt min.)? @ -no CT interpreted by me (1pt min.)? @ -CT brain and C-spine show large hematoma no skull fracture nor intracranial hemorrhage or cervical fracture as interpreted by me and radiology U/S interpreted by me (1pt. min.)? @ -none What testing was considered but not performed? (CT, X-rays, U/S, labs)? Why? @ no What meds were considered but not given? Why? @ -no Did you discuss the management of the patient with other professionals? @ -no Did you reconcile home meds? @ -no Was smoking cessation discussed for >3mins.? @ -no Was critical care preformed (if so, how long)? @ -no Were there social determinants of health that impacted care today? How? (Homelessness, low income, unemployed, alcoholism, drug addiction, transportation, low edu. Level, literacy, decrease access to med. care, penitentiary, rehab)? @ -no Was there de-escalation of care discussed even if they declined? (Discuss DNR or withdrawal of care, Hospice)? @ -no What co-morbidities impacted this encounter? (DM, HTN, Smoking, COPD, CAD, Cancer, CVA, Hep., AIDS, mental health diagnosis, sleep apnea, morbid obesity)? @ -no Was patient admitted / discharged? @ -discharged Undiagnosed new problem with uncertain prognosis? @ -no Drug Therapy requiring intensive monitoring for toxicity (Heparin, Nitro, Insulin, Cardizem)? @ -no Were any procedures done? @ -no Diagnosis/symptom? @ -Scalp hematoma Acute, or Chronic, or Acute on Chronic? @ -Acute Uncomplicated (without systemic symptoms) or Complicated (systemic symptoms)? @ -Uncomplicated Side effects of treatment? @ -no Exacerbation, Progression, or Severe Exacerbation] @ -no Poses a threat to life or bodily function? @ -no] (Emanuel Galindo) Disposition <Rogelio Olmos - Last Filed: 09/07/22 14:25> Is patient prescribed a controlled substance at d/c from ED?: No Time of Disposition: 15:13 <Emanuel Galindo - Last Filed: 09/07/22 15:13> Clinical Impression: Fall, Scalp hematoma, Closed head injury Disposition: HOME SELF-CARE Condition: Stable Instructions (If sedation given, give patient instructions): Head Injury (ED) Additional Instructions: Please return to the Emergency Department if symptoms worsen or any other concerns. Referrals: Kalia Thompson MD [Primary Care Provider] - 1-2 days
[2022-09-07 14:20] VITALS: BP 152/92; PULSE 71; RESP 18; TEMP 98
[2022-09-07] MEDS ORDERED: HYDROcodone/APAP 5-325MG 1 EACH TAB PO STA (15:02)
--- NOTE | 2022-09-07 15:11 | CT ---
EXAMINATION TYPE: CT brain cspine wo con CT DLP: 1329.4 mGycm, Automated exposure control for dose reduction was used. DATE OF EXAM: 09/07/2022 2:55 PM COMPARISON: CT brain 10/25/2018 CLINICAL INDICATION:Male, 77 years old with history of fall; fall TECHNIQUE: Brain: Multiple axial CT images of the brain were obtained without IV contrast. Cspine: Axial CT images from the skull base to the inferior aspect of T2 we obtained without intraven ous contrast. Coronal and sagittal reformatted images were also reviewed. FINDINGS: Brain: Extra-axial spaces: No abnormal extra-axial fluid collections. Ventricular system: Dilatation in proportion to cerebral atrophy. Cerebral parenchyma: Cerebral atrophy. No acute intraparenchymal hemorrhage or mass effect. The vitale -white junction is well differentiated. Scattered hypoattenuating areas are seen within the white mat ter. Cerebellum: Unremarkable. Mass effect: No evidence of midline shift. Intracranial vasculature: Atherosclerotic calcifications of the intracranial vessels. Soft tissues: Left scalp hematoma/edema measuring up to 6.5 x 1.2 cm. Calvarium/osseous structures: No depressed skull fracture. Paranasal sinuses and mastoid air cells: Mild scattered mucosal thickening and or secretions. Bilater al mastoid air cell effusions left greater than right. Visualized orbits: Bilateral surgical changes to the lenses. Cervical spine: Fracture: None. Osseous structures: Multilevel degenerative disc disease changes with endplate spurring and disc oste ophyte complex's. Vertebral alignment: Increased lordosis of the cervical spine. Spinal canal/Neural Foramina: Disc osteophyte complexes at C4-C5 and C6-C7 with at least mild spinal canal stenosis. No evidence for significant neural foraminal stenosis. Neck soft tissues: Prevertebral soft tissues are within normal limits. Other: The airway is patent. The lung apices are clear. Nuchal ligament calcifications. Atheroscleros is of the carotid bifurcations. Aortic stent grafts partially visualized. IMPRESSION: 1. No acute intracranial process. 2. Left frontal scalp hematoma/edema without evidence of fracture. 3. Nonspecific white matter changes, likely secondary to chronic small vessel ischemic disease. 4. No evidence of cervical spine fracture. 5. Mild multilevel degenerative disc disease. 6. Bilateral mastoid air cell effusions left greater than right.
[2022-09-07] MEDS ORDERED: ACET/COD 300 MG/30 MG STARTER PACK 6 TAB BTL PO STA (15:17)
== END 2022-09-07 15:35 | disposition home or self-care (01) ==
LOC: EC 13:59
DX: S00.03XA Contusion of scalp, initial encounter (principal); I10 Essential (primary) hypertension; F32.A Depression, unspecified; F12.90 Cannabis use, unspecified, uncomplicated; G40.909 Epilepsy, unspecified, not intractable, without status epilepticus; Z91.013 Allergy to seafood; Z91.018 Allergy to other foods; Z88.6 Allergy status to analgesic agent; Z79.899 Other long term (current) drug therapy; Z79.82 Long term (current) use of aspirin; Z98.61 Coronary angioplasty status; W01.10XA Fall on same level from slipping, tripping and stumbling with subsequent striking against unspecified object, initial encounter; Y93.89 Activity, other specified
CPT/HCPCS: 70450; 72125; 93005; 99284